=== PATIENT | male | born 1955 | race Caucasian/White ===

== ENCOUNTER 2019-06-18 11:28 | Emergency (ER) | payer OTHER ==
[~2019-06-18] VITALS: Ht 172.7 cm; Wt 77.6 kg
[~2019-06-18 11:28] MED LIST: ALTACE1.25 M1 PO; ALTACE10 M1 PO; ANTIHIPERTENSIVO; CRESTOR5 MG PO; PARA COLESTEROL; [UNRECOGNIZED DRUG - OTHER]
[2019-06-18] MEDS ORDERED: BACTRIM DS TAB1 EACH PO (11:53)
== END 2019-06-18 11:59 | disposition home or self-care (01) ==
LOC: ER 11:28
DX: L03.113 Cellulitis of right upper limb (principal); T63.444A Toxic effect of venom of bees, undetermined, initial encounter; R60.0 Localized edema; Y92.018 Other place in single-family (private) house as the place of occurrence of the external cause

== ENCOUNTER 2019-11-12 06:10 | Emergency (ER) | payer OTHER ==
[~2019-11-12] VITALS: Ht 172.7 cm; Wt 77.1 kg
[~2019-11-12 06:10] MED LIST changes: +BACTRIM DS TAB1 EACH PO
[2019-11-12] MEDS ORDERED: ELIQUIS5 MG PO (06:35)
[2019-11-12] MEDS ORDERED: CRESTOR5 MG PO (06:36)
[2019-11-12] MEDS ORDERED: TOPROL XL25 M1 PO (06:36)
== END 2019-11-12 06:54 | disposition home or self-care (01) ==
LOC: ER 06:10
DX: G89.18 Other acute postprocedural pain (principal); H57.12 Ocular pain, left eye

== ENCOUNTER 2020-02-11 12:54 | Emergency (ER) | payer OTHER ==
[~2020-02-11] VITALS: Ht 172.7 cm; Wt 76.2 kg
[~2020-02-11 12:54] MED LIST changes: +ELIQUIS5 MG PO; +TOPROL XL25 M1 PO
== END 2020-02-11 20:16 | disposition home or self-care (01) ==
LOC: ER 12:54
DX: R55 Syncope and collapse (principal); R11.2 Nausea with vomiting, unspecified; R51 Headache

== ENCOUNTER 2021-12-15 10:37 | Emergency (ER) | payer OTHER ==
[~2021-12-15] VITALS: Ht 172.7 cm; Wt 76.2 kg
[2021-12-15] MEDS ORDERED: ARICEPT5 MG PO (10:55)
[2021-12-15] MEDS ORDERED: ZETIA10 MG PO (10:55)
[2021-12-15] MEDS ORDERED: ARICEPT10 MG PO (10:56)
== END 2021-12-15 19:55 | disposition home or self-care (01) ==
LOC: ER 10:37
DX: R10.9 Unspecified abdominal pain (principal); K57.92 Diverticulitis of intestine, part unspecified, without perforation or abscess without bleeding